=== PATIENT | male | born 2000 | race Caucasian/White ===

== ENCOUNTER → 2022-04-26 | Outpatient (CLI) | payer BC | LOC: LAB 13:01 | DX: B34.9 Viral infection, unspecified (principal); Z20.822 Contact with and (suspected) exposure to COVID-19 ==

== ENCOUNTER → 2023-08-06 | Outpatient (CLI) | payer BC | END | disposition still patient (30) | LOC: RAD 10:32 | DX: M25.531 Pain in right wrist (principal) ==

== ENCOUNTER → 2024-03-27 | Outpatient (CLI) | payer BC | LOC: RAD 14:15 | DX: M25.571 Pain in right ankle and joints of right foot (principal) ==